=== PATIENT | male | born 1975 | race Two or more races ===

== ENCOUNTER → 2024-09-12 | Outpatient (CLI) | payer MEDICAID, SELFPAY ==
--- NOTE | 2024-09-12 10:00 | XR_ITS ---
Examination: Abdomen sonogram, complete Date and time of exam: September 12, 2024 1018 hours INDICATIONS: Epigastric pain beginning one year ago. Technique: Multiple real-time grayscale transabdominal sonographic images of the abdomen have been obtained. Findings: Normal gallbladder. Normal common bile duct 0.2 cm Pancreatic head 2.7 cm Aorta not enlarged. Liver 13.7 cm fatty infiltration no focal liver lesions Normal hepatopedal portal venous flow Patent IVC Right kidney 11.9 cm cortex 1.5 cm Upper pole 16 mm cyst Left kidney 10.1 cm cortex 2.1 cm Moderate bilateral renal parenchymal scar formation Spleen 10.6 cm IMPRESSION: Normal gallbladder Fatty liver Moderate bilateral renal parenchymal scar formation
== END | disposition home or self-care (01) ==
PROVIDERS: PCP Internal Medicine; Referring Provider Nurse Practitioner Family; Visit Provider Nurse Practitioner Family
DX: K76.0 Fatty (change of) liver, not elsewhere classified (principal); N28.89 Other specified disorders of kidney and ureter
CPT/HCPCS: 76700